=== PATIENT | female | born 1960 | race Caucasian/White ===

== ENCOUNTER 2016-07-04 15:15 | Observation (INO) | payer BC ==
[~2016-07-04 15:15] MED LIST: ASPIR 8181 MG PO; ATENOLOL-CHLOR1 EAC1 PO; ATENOLOL50 MG PO; ATORVASTATIN CA40 MG PO; CELEXA20 MG PO; CELEXA40 MG PO; CHLORTHALIDONE25 MG PO; COZAAR 50MG TAB50 MG PO; GLUCOPHAGE1000 MG PO; GLUCOPHAGE500 MG PO; GLUCOTROL 10 MG10 MG PO; LANTUS100 UNIT/1 SQ; LORTAB 5-325 M1 EACH PO; METFORMIN HCL1000 MG PO; METFORMIN HCL500 MG PO; NORCO 7.5-3251 EACH PO; PHENERGAN 12.12.5 M1 PO; PRILOSEC OTC20 MG PO; PROTONIX 40 MG40 M1 PO; ZOFRAN4 MG PO
[2016-07-04 17:10] LABS: HEMOGLOBIN 13.8 gm/dl (12.3-15.3); RED BLOOD COUNT 4.59 M/UL (4.00-5.10); WHITE BLOOD COUNT 8.6 K/UL (4.5-11.0)
[2016-07-04 17:26] LABS: BUN/CREATININE RATIO 14 (0-10)
[2016-07-05] MEDS ORDERED: ZANAFLEX4 M1 PO (00:32)
[2016-07-05] MEDS ORDERED: VITAMIN D5000 UNIT PO (00:32)
[2016-07-05 03:38] LABS: BUN/CREATININE RATIO 19 (0-10)
[2016-07-05] MEDS ORDERED: TRICOR145 MG PO (14:55)
[2016-07-05] MEDS ORDERED: METFORMIN HCL500 MG PO (15:22)
== END 2016-07-05 16:34 | disposition home or self-care (01) ==
LOC: ER1 15:15 → ZEROF 22:40 → M/S 22:40
PROVIDERS: Emergency Medicine; ADMIT Internal Medicine
DX: R07.89 Other chest pain (principal); E11.65 Type 2 diabetes mellitus with hyperglycemia; E78.5 Hyperlipidemia, unspecified; E78.1 Pure hyperglyceridemia; I10 Essential (primary) hypertension; K21.9 Gastro-esophageal reflux disease without esophagitis; F32.9 Major depressive disorder, single episode, unspecified; Z83.3 Family history of diabetes mellitus; Z82.49 Family history of ischemic heart disease and other diseases of the circulatory system; Z88.2 Allergy status to sulfonamides; Z79.82 Long term (current) use of aspirin; Z79.899 Other long term (current) drug therapy; Z90.49 Acquired absence of other specified parts of digestive tract; Z90.89 Acquired absence of other organs; Z98.890 Other specified postprocedural states; Z91.19 Patient's noncompliance with other medical treatment and regimen
CPT/HCPCS: 36415; 70450; 71010; 80048; 80053; 80061; 81001; 82009; 82550; 82553; 82962; 83036; 83690; 83874; 84484; 85025; 93005; 96372; 96374; 99285; G0378; J1650; J2405; J7030

== ENCOUNTER → 2021-02-18 | Emergency (ER) | payer OTHER ==
[~2021-02-18] MED LIST changes: +TRICOR145 MG PO; +VITAMIN D5000 UNIT PO; +ZANAFLEX4 M1 PO
[2021-02-18 17:42] LABS: BUN/CREATININE RATIO 25 (0-10)
== END | disposition home or self-care (01) ==
LOC: ER1 15:41
PROVIDERS: Nurse Practitioner
DX: I10 Essential (primary) hypertension (principal); N17.9 Acute kidney failure, unspecified; E78.5 Hyperlipidemia, unspecified; E11.9 Type 2 diabetes mellitus without complications; Z88.2 Allergy status to sulfonamides
CPT/HCPCS: 70450; 71045; 80053; 81001; 82550; 82553; 83874; 84484; 85025; 99284; J7030

== ENCOUNTER 2021-11-17 05:40 | Emergency (ER) | payer OTHER ==
[2021-11-17 06:09] LABS: HEMOGLOBIN 16.3 gm/dl (12.3-15.3); RED BLOOD COUNT 5.46 M/UL (4.00-5.10); WHITE BLOOD COUNT 15.4 K/UL (4.5-11.0)
[2021-11-17] MEDS ORDERED: BENTYL 20MG TAB20 MG PO (09:16)
[2021-11-17] MEDS ORDERED: ZOFRAN ODT 4 MG4 MG GT (09:16)
[2021-11-17] MEDS ORDERED: PROTONIX 40 MG40 M1 PO (09:16)
== END 2021-11-17 09:55 | disposition home or self-care (01) ==
LOC: ER1 05:40
PROVIDERS: Student in an Organized Health Care Education/Training Program
DX: R10.84 Generalized abdominal pain (principal); R11.2 Nausea with vomiting, unspecified; R19.7 Diarrhea, unspecified; E11.9 Type 2 diabetes mellitus without complications; I10 Essential (primary) hypertension; Z88.2 Allergy status to sulfonamides
CPT/HCPCS: 80053; 81001; 83690; 85025; 96374; 96375; 99284; C9113; J2405; Q9967